=== PATIENT | female | born 1960 | race Caucasian/White ===

== ENCOUNTER 2017-05-04 18:30 | Inpatient (IN) | payer OTHER ==
[~2017-05-04] VITALS: Ht 154.9 cm; Wt 74.3 kg
[~2017-05-04 18:30] MED LIST: OSEL75 PO
[2017-05-04 18:34] VITALS: BP 179/82; PULSE 92; RESP 24; TEMP 97.4; O2SAT 100
--- NOTE | 2017-05-04 18:37 | PD ---
Physical Exam Date Seen by Provider: May 04, 2017 Time Seen by Provider: 18:34 MDM Supervised Visit with HAMMAD: No Narrative Course 57 YO left hand dom F with complaint of RIGHT wrist pain after FOOSH just before arrival. Endorses previous fracture of the same. Visibly deformed. Palpable radial pulse noted. Seen in triage. Vitals reviewed. Awaiting bed placement. Joanie Vargas May 04, 2017 18:37
[2017-05-04] MEDS ORDERED: ANXIETY MEDS (18:41)
--- NOTE | 2017-05-04 18:41 | PD ---
HPI Chief Complaint: Injury Time Seen by Provider: 18:41 Travel History International Travel<30 days: No Contact w/Intl Traveler<30days: No Traveled to known affect area: No History of Present Illness HPI 57-year-old left-handed female with history of anxiety presents to emergency department for evaluation following a trip and fall. Patient states she was walking her dogs when she fell, landing on an outstretched right upper extremity. She experienced immediate pain and deformity of the right wrist. Rates it a 10 out of 10. States she cannot flex or extend her digits without severe pain in her wrist. Did not strike her head or lose consciousness. She has no other symptoms reported this time. PFSH Past Medical History Heart Rhythm Problems: No Cancer: No Cardiac Catheterization: No Cardiovascular Problems: No High Cholesterol: Yes Diabetes: No Diminished Hearing: No Endocrine: No Gastrointestinal Disorders: No Genitourinary: No Hepatitis: No Hiatal Hernia: No Hypertension: No Immune Disorder: No Musculoskeletal: No Neurologic: No Psychiatric: No Reproductive: No Respiratory: No Myocardial Infarction: No Thyroid Disease: No ?: Not Menopausal: Yes Tubal Ligation: Yes Past Surgical History Abdominal Surgery: Yes (appendectomy) AICD: No Appendectomy: Yes Coronary Artery Bypass Graft: No Genitourinary Surgery: Yes (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 BREAST REDUCTION) Social History Alcohol Use: Yes (occas. wine) Tobacco Use: No (QUIT 2010 smoked 1 pack every4-5 days since the age of 21) Substance Use: No Allergies-Medications (Allergen,Severity, Reaction): Coded Allergies: Penicillin (Verified Allergy, Severe, SOB, SWELLING, 05/04/17) Wasp (Verified Allergy, Mild, SHOCK, 05/04/17) Tetanus Immune Globulin (Verified Allergy, Unknown, HIGH FEVER, 05/04/17) ARM LOCKS Reported Meds & Prescriptions Reported Meds & Active Scripts Active Reported [anxiety meds] Review of Systems Except as stated in HPI: all other systems reviewed are Neg Physical Exam Narrative GENERAL: Well-nourished female patient, tearful but in no acute distress SKIN: Focused skin assessment warm/dry. HEAD: Atraumatic. Normocephalic. EYES: Pupils equal and round. No scleral icterus. No injection or drainage. ENT: No nasal bleeding or discharge. Mucous membranes pink and moist. NECK: Trachea midline. No JVD. CARDIOVASCULAR: Elevated rate and rhythm. No murmur appreciated. RESPIRATORY: No accessory muscle use. Clear to auscultation. Breath sounds equal bilaterally. GASTROINTESTINAL: Abdomen soft, non-tender, nondistended. Hepatic and splenic margins not palpable. EXTREMITY: There is swelling and tenderness of the right distal forearm and wrist. There is an obvious deformity. The skin is intact. Flexion and extension of the fingers is normal. The fingers are warm and well perfused. Sensation to light touch is intact in the hand. NEUROLOGICAL: Awake and alert. No obvious cranial nerve deficits. Motor grossly within normal limits. Normal speech. PSYCHIATRIC: Appropriate mood and affect; insight and judgment normal. Data Data Last Documented VS Vital Signs Date Time Temp Pulse Resp B/P Pulse Ox O2 Delivery O2 Flow Rate FiO2 05/04/17 20:11 78 17 135/76 99 Room Air 05/04/17 18:34 97.4 Orders Wrist, Complete ([id number]) (05/04/17 ) Iv Access Insert/Monitor (05/04/17 18:45) Ondansetron Inj (Zofran Inj) (05/04/17 19:00) Sodium Chlor 0.9% 1000 Ml Inj (Ns 1000 M (05/04/17 19:00) Morphine Inj (Morphine Inj) (05/04/17 19:15) Complete Blood Count With Diff (05/04/17 19:31) Basic Metabolic Panel (Bmp) (05/04/17 19:31) Coag Profile (05/04/17 19:31) Chest, Single Ap (05/04/17 ) Electrocardiogram (05/04/17 ) Urinalysis - C+S If Indicated (05/04/17 19:31) Splint Or Brace Apply/Monitor (05/04/17 19:31) Ice / Cold Pack PRN (05/04/17 19:31) Npo After Midnight W/ Po Meds (05/05/17 Breakfast) Labs Laboratory Tests Test 05/04/17 20:10 White Blood Count 10.1 TH/MM3 Red Blood Count 3.82 MIL/MM3 Hemoglobin 12.0 GM/DL Hematocrit 34.5 % Mean Corpuscular Volume 90.3 FL Mean Corpuscular Hemoglobin 31.5 PG Mean Corpuscular Hemoglobin 34.9 % Concent Red Cell Distribution Width 12.2 % Platelet Count 274 TH/MM3 Mean Platelet Volume 8.7 FL Neutrophils (%) (Auto) 75.1 % Lymphocytes (%) (Auto) 17.6 % Monocytes (%) (Auto) 5.9 % Eosinophils (%) (Auto) 1.0 % Basophils (%) (Auto) 0.4 % Neutrophils # (Auto) 7.6 TH/MM3 Lymphocytes # (Auto) 1.8 TH/MM3 Monocytes # (Auto) 0.6 TH/MM3 Eosinophils # (Auto) 0.1 TH/MM3 Basophils # (Auto) 0.0 TH/MM3 CBC Comment DIFF FINAL Differential Comment Prothrombin Time 10.7 SEC Prothromb Time International 1.0 RATIO Ratio Activated Partial 27.4 SEC Thromboplast Time MDM Medical Decision Making Medical Screen Exam Complete: Yes Emergency Medical Condition: Yes Medical Record Reviewed: Yes Differential Diagnosis Fracture versus dislocation versus contusion versus sprain Narrative Course 57-year-old female presents to emergency room for evaluation right wrist injury. Patient is treated for pain. X-ray imaging shows Last Impressions Wrist X-Ray 05/04/17 0000 Signed Impressions: Service Date/Time: Thursday, May 04, 2017 18:53 - CONCLUSION: Comminuted and impacted/dorsally angulated intra-articular fracture of the distal right radius. Juan Carlos Marshall MD Chest X-Ray 05/04/17 0000 Signed Impressions: Service Date/Time: Thursday, May 04, 2017 19:28 - CONCLUSION: No evidence of acute cardiopulmonary disease. Juan Carlos Marshall MD I discussed the patient with Dr. Rich, orthopedic surgeon on-call. He requests the patient be nothing by mouth after midnight, admitted to medicine, and he will take her to the OR tomorrow for repair. Discussed with the patient. She is in agreement with the [facility] care. Preop labs have been ordered. EKG is normal sinus rhythm without ST elevation or depression. Chest x-ray is without acute cardiopulmonary disease. CBC and BMP are without acute concern. Laboratory Tests Test 05/04/17 20:10 White Blood Count 10.1 TH/MM3 Red Blood Count 3.82 MIL/MM3 Hemoglobin 12.0 GM/DL Hematocrit 34.5 % Mean Corpuscular Volume 90.3 FL Mean Corpuscular Hemoglobin 31.5 PG Mean Corpuscular Hemoglobin 34.9 % Concent Red Cell Distribution Width 12.2 % Platelet Count 274 TH/MM3 Mean Platelet Volume 8.7 FL Neutrophils (%) (Auto) 75.1 % Lymphocytes (%) (Auto) 17.6 % Monocytes (%) (Auto) 5.9 % Eosinophils (%) (Auto) 1.0 % Basophils (%) (Auto) 0.4 % Neutrophils # (Auto) 7.6 TH/MM3 Lymphocytes # (Auto) 1.8 TH/MM3 Monocytes # (Auto) 0.6 TH/MM3 Eosinophils # (Auto) 0.1 TH/MM3 Basophils # (Auto) 0.0 TH/MM3 CBC Comment DIFF FINAL Differential Comment Prothrombin Time 10.7 SEC Prothromb Time International 1.0 RATIO Ratio Activated Partial 27.4 SEC Thromboplast Time A call has been placed at [facility] for admission. Diagnosis Primary Impression: Right wrist fracture Qualified Code: S62.101A - Right wrist fracture, closed, initial encounter Admitting Information Admitting Physician Requests: Admit Condition: Stable Madyson Benavides May 04, 2017 18:41
[2017-05-04] MEDS ORDERED: SODIUM CHLOR 0.9% 1000 ML INJ 1,000 ML IV ONE (19:00)
[2017-05-04] MEDS ORDERED: ONDANSETRON HCL 4 MG/2 ML VIAL IV PUSH ONE (19:00)
--- NOTE | 2017-05-04 19:11 | RADRPT ---
EXAM DATE/TIME: 05/04/2017 18:53 [facility] COMPARISON: No previous studies available for comparison. INDICATIONS : Fall. Mid forearm pain with swelling. MEDICAL HISTORY : None. SURGICAL HISTORY : Hysterectomy. Appendectomy. Endometrial Ablation, R hand Carpal Tunnel and trigger finger ENCOUNTER: Initial ACUITY: 1 day PAIN SCORE: 10/10 LOCATION: Right wrist FINDINGS: There is a severely comminuted intra-articular fracture of the distal right radius. The fracture is i mpacted and dorsally angulated. Comminuted fracture also seen of the ulnar styloid, minimally displaced. CONCLUSION: Comminuted and impacted/dorsally angulated intra-articular fracture of the distal right radius. Juan Carlos Marshall MD on May 04, 2017 at 19:07 Board Certified Radiologist. This report was verified electronically.
[2017-05-04] MEDS ORDERED: MORPHINE SULFATE 4 MG/ML INJ IV PUSH ONE (19:15)
[2017-05-04 19:30] VITALS: BP 142/67; PULSE 79; RESP 17; O2SAT 98
--- NOTE | 2017-05-04 19:58 | RADRPT ---
EXAM DATE/TIME: 05/04/2017 19:28 [facility] COMPARISON: No previous studies available for comparison. INDICATIONS : Evaluate for pneumonia, pneumothorax, and communicable disease. Pre-op right wrist fracture. MEDICAL HISTORY : None. SURGICAL HISTORY : Hysterectomy. Appendectomy. Endometrial Ablation, R hand Carpal Tunnel. Trigger finger ENCOUNTER: Subsequent ACUITY: 1 day PAIN SCORE: 0/10 LOCATION: Bilateral chest FINDINGS: A single view of the chest demonstrates the lungs to be symmetrically aerated without evidence of mas s, infiltrate or effusion. The cardiomediastinal contours are unremarkable. Osseous structures are intact. CONCLUSION: No evidence of acute cardiopulmonary disease. Juan Carlos Marshall MD on May 04, 2017 at 19:55 Board Certified Radiologist. This report was verified electronically.
[2017-05-04 20:11] VITALS: BP 135/76; PULSE 78; RESP 17; O2SAT 99
[2017-05-04 20:42] LABS: AUTOMATED NEUTROPHIL # 7.6 TH/MM3 (1.8-7.7); BASOPHIL % 0.4 % (0.0-2.0); EOSINOPHIL # 0.1 TH/MM3 (0-0.4); HEMATOCRIT 34.5 % (35.0-46.0); HEMO FLAGS DIFF FINAL; LYMPH % 17.6 % (9.0-44.0); LYMPHOCYTE # 1.8 TH/MM3 (1.0-4.8); MEAN CELL VOLUME 90.3 FL (80.0-100.0); MEAN CORPUSCULAR HEMOGLOBIN 31.5 PG (27.0-34.0); MEAN CORPUSCULAR HGB CONC 34.9 % (32.0-36.0); MONO % 5.9 % (0.0-8.0); NEUT % 75.1 % (16.0-70.0); PLATELET COUNT 274 TH/MM3 (150-450); RED BLOOD COUNT 3.82 MIL/MM3 (4.00-5.30); RED CELL DISTRIBUTION WIDTH 12.2 % (11.6-17.2); WHITE BLOOD COUNT 10.1 TH/MM3 (4.0-11.0)
[2017-05-04 20:58] LABS: APTT (PATIENT) 27.4 SEC (24.3-30.1); PROTHROMBIN TIME - PATIENT 10.7 SEC (9.8-11.6)
[2017-05-04 21:03] LABS: BICARBONATE 25.6 MEQ/L (21.0-32.0); POTASSIUM 3.5 MEQ/L (3.5-5.1)
[2017-05-04 21:25] LABS: BACTERIA, URINE RARE /hpf; BLOOD, URINE NEG (NEG); COMMENT (UR) CULTURE INDICATED; CULTURE IF INDICATED CULTURE INDICATED; GLUCOSE,URINE NEG (NEG); KETONE, URINE NEG (NEG); MUCUS URINE FEW /lpf (OCC); NITRITE,URINE NEG (NEG); URINE COLOR COLORLESS (YELLW/STRAW)
--- NOTE | 2017-05-04 21:27 | HHI.HP ---
[facility] Primary [facility] Physician Nabor Mendoza MD Admission Diagnosis R wrist fracture Diagnoses: (1) Fall Diagnosis: Principal (2) Right wrist fracture Diagnosis: Principal (3) Hypocalcemia Diagnosis: Principal (4) Dehydration Diagnosis: Principal (5) HTN (hypertension) Diagnosis: Principal (6) UTI (urinary tract infection) Diagnosis: Principal Travel History International Travel<30 Days: No Contact w/Intl Traveler <30 Da: No Traveled to Known Affected Are: No History of Present Illness This is a 57-year-old female with PMH of Anxiety who presented to the ER with right wrist deformity following a fall. States she went to take her 2 large dogs outside for a walk, when one of them ran off and pulled her with him, landed on outstretched hand. States she noticed obvious deformity to right wrist and severe pain. No LOC or head trauma. On arrival, BP 135/76, HR 78, O2 sat 99% on RA, Afebrile. CBC essentially unremarkable. Chemistry unremarkable except for GFR 79. Calcium 8.4. INR 1.0. U/a w/ UTI. CXR with no acute findings. Wrist X-ray with comminuted and impacted/dorsally angulated intra-articular fracture of the distal right radius. Dr. Huynh consulted by ER physician, plan is for surgical intervention in am. Review of Systems Except as stated in HPI: all other systems reviewed are Neg ROS: 14 point review of systems otherwise negative. Past Family Social History Past Medical History PMH: Anxiety Past Surgical History PAST SURGICAL HISTORY: Appendectomy, Benign Breast Tumor Removal, Breast Reduction, Hysterectomy Allergies: Coded Allergies: Penicillin (Verified Allergy, Severe, SOB, SWELLING, 05/04/17) Wasp (Verified Allergy, Mild, SHOCK, 05/04/17) Tetanus Immune Globulin (Verified Allergy, Unknown, HIGH FEVER, 05/04/17) ARM LOCKS Family History PAST FAMILY HISTORY: Reviewed. No h/o DM or CAD Social History PAST SOCIAL HISTORY: Occasional alcohol. Negative for tobacco or drugs. Physical Exam Vital Signs Vital Signs Date Time Temp Pulse Resp B/P Pulse Ox O2 Delivery O2 Flow Rate FiO2 05/04/17 20:11 78 17 135/76 99 Room Air 05/04/17 19:45 17 05/04/17 19:30 79 17 142/67 98 Room Air 05/04/17 18:34 97.4 92 24 179/82 100 Room Air Physical Exam PE: GENERAL: Pleasant middle-aged white female in no acute distress. HEENT: PERRLA, EOMI. No scleral icterus or conjunctival pallor. No lid lag or facial droop. CARDIOVASCULAR: Regular rate and rhythm. No obvious murmurs to auscultation. No chest tenderness to palpation. RESPIRATORY: No obvious rhonchi or wheezing. Clear to auscultation. Breath sounds equal bilaterally. GASTROINTESTINAL: Abdomen soft, non-tender, nondistended. BS normal. MUSCULOSKELETAL: Extremities without clubbing, cyanosis, or edema. No obvious deformities. RUE in splint, +pain w/ movement. NEUROLOGICAL: Awake, alert and oriented x4. No focal neurologic deficits. Moving both upper and lower extremities spontaneously. Laboratory Laboratory Tests Test 05/04/17 05/04/17 20:10 20:50 White Blood Count 10.1 Red Blood Count 3.82 Hemoglobin 12.0 Hematocrit 34.5 Mean Corpuscular Volume 90.3 Mean Corpuscular Hemoglobin 31.5 Mean Corpuscular Hemoglobin 34.9 Concent Red Cell Distribution Width 12.2 Platelet Count 274 Mean Platelet Volume 8.7 Neutrophils (%) (Auto) 75.1 Lymphocytes (%) (Auto) 17.6 Monocytes (%) (Auto) 5.9 Eosinophils (%) (Auto) 1.0 Basophils (%) (Auto) 0.4 Neutrophils # (Auto) 7.6 Lymphocytes # (Auto) 1.8 Monocytes # (Auto) 0.6 Eosinophils # (Auto) 0.1 Basophils # (Auto) 0.0 CBC Comment DIFF FINAL Differential Comment Prothrombin Time 10.7 Prothromb Time International 1.0 Ratio Activated Partial 27.4 Thromboplast Time Sodium Level 141 Potassium Level 3.5 Chloride Level 107 Carbon Dioxide Level 25.6 Anion Gap 8 Blood Urea Nitrogen 18 Creatinine 0.75 Estimat Glomerular Filtration 79 Rate Random Glucose 118 Calcium Level 8.4 Urine Color COLORLESS Urine Turbidity CLEAR Urine pH 6.0 Urine Specific [place] 1.005 Urine Protein NEG Urine Glucose (UA) NEG Urine Ketones NEG Urine Occult Blood NEG Urine Nitrite NEG Urine Bilirubin NEG Urine Urobilinogen LESS THAN 2.0 Urine Leukocyte Esterase LARGE Urine RBC LESS THAN 1 Urine WBC 24 Urine Bacteria RARE Urine Mucus FEW Microscopic Urinalysis Comment CULTURE INDICATED Date/Time Procedure Status Source Growth 05/04/17 20:50 Urine Culture Received Urine Clean Catch Pending Result Diagram: 05/04/17200905/04/172009 Assessment and Plan Problem List: (1) Fall ICD Code: W19.XXXA Status: Acute (2) Right wrist fracture ICD Code: S62.101A Status: Acute (3) Dehydration ICD Code: E86.0 Status: Acute (4) Hypocalcemia ICD Code: E83.51 Status: Acute (5) UTI (urinary tract infection) ICD Code: N39.0 Status: Acute (6) HTN (hypertension) ICD Code: I10 Status: Acute Assessment and Plan A/P: 1. Fall: s/p mechanical trip and fall while walking dogs, no LOC or head trauma reported. No other injuries besides right wrist fx. 2. Right Wrist Fx: secondary to above. X-ray w/ comminuted and impacted intra -articular fracture of distal right radius, images reviewed by me. Dr. Huynh consulted by ER physician, plan is for surgical intervention in am. NPO, IVF, analgesics/antiemetics as needed. 3. Dehydration: GFR 79, BUN/Creatinine normal. U/a w/ UTI, IVF for hydration , repeat labs in am. 4. Hypocalcemia: Ca 8.4, will give IVF and recheck in am. 5. UTI: U/a w/ significant UTI, start IV Cipro, IVF for hydration. 6. HTN: BP 170's on arrival, likely compounded by pain complaints. No h/o HTN , BP currently 130's systolic, will monitor. 7. DVT Prophylaxis: SCD/Teds. 8. Social work for d/c planning as needed. 9. Case discussed w/ ER physician at length. Physician Certification 2 Midnight Certification Type: Admission for Inpatient Services Order for Inpatient Services The services are ordered in accordance with Medicare regulations or non- Medicare payer requirements, as applicable. In the case of services not specified as inpatient-only, they are appropriately provided as inpatient services in accordance with the 2-midnight benchmark. Estimated LOS (days): 2 days is the estimated time the patient will need to remain in the hospital, assuming treatment plan goals are met and no additional complications. Post-Hospital Plan: Not yet determined Problem Qualifiers (1) Right wrist fracture: Qualified Code: S62.101A - Right wrist fracture, closed, initial encounter Deja Kumar MD May 04, 2017 21:27
[2017-05-04] MEDS ORDERED: SODIUM CHLORIDE 0.9% FLUSH 10 ML FLUSH IV FLUSH PRN (21:30)
[2017-05-04] MEDS ORDERED: ACETAMINOPHEN 325 MG TAB PO PRN (21:30)
[2017-05-04] MEDS ORDERED: LACTULOSE SYRUP 20 GM/30 ML CUP PO PRN (21:30)
[2017-05-04] MEDS ORDERED: SENNOSIDES 8.6 MG TAB PO PRN (21:30)
[2017-05-04] MEDS ORDERED: ONDANSETRON HCL 4 MG/2 ML VIAL IVP PRN (21:30)
[2017-05-04] MEDS ORDERED: BISACODYL 10 MG SUPP RECTAL PRN (21:30)
[2017-05-04] MEDS ORDERED: MAGNESIUM HYDROXIDE SUSP 30 ML CUP PO PRN (21:30)
[2017-05-04 21:37] VITALS: BP 131/64
[2017-05-04] MEDS: MORPHINE SULFATE 4 MG/ML INJ IV PRN (21:46)
[2017-05-04] MEDS: SODIUM CHLOR 0.9% 1000 ML INJ 1,000 ML IV SCH (21:46)
[2017-05-04] MEDS ORDERED: CHLORHEXIDINE GLUCONATE 2 % 1 PACK (2 CLOTHS) TOPICAL PRN (22:45)
[2017-05-04] MEDS ORDERED: LACTATED RINGER'S 1000 ML IV PRN (22:45)
[2017-05-04] MEDS ORDERED: POVIDONE IODINE 5% (ANTISEPSIS KIT) 4 APPLICATIONS EACH NARE PRN (22:45)
[2017-05-04] MEDS ORDERED: INSULIN HUMAN REGULAR 1,000 UNITS/10 ML VIAL SQ PRN (22:45)
[2017-05-04] MEDS: ACETAMINOPHEN/HYDROcodone 325 MG/5 MG TAB PO PRN (22:48)
[2017-05-05] VITALS: BP 137/66; PULSE 71; RESP 18; TEMP 96.3; O2SAT 98
[2017-05-05] MEDS ORDERED: CIPROFLOXACIN 400 MG PREMIX 200 ML IV SCH (01:00)
[2017-05-05] MEDS: MORPHINE SULFATE 4 MG/ML INJ IV PRN ×2 (01:09→06:16)
[2017-05-05] MEDS ORDERED: PADIMATE (CHAPSTICK) 4.5 GM TUBE TOPICAL PRN (01:30)
[2017-05-05] MEDS: ACETAMINOPHEN/HYDROcodone 325 MG/5 MG TAB PO PRN ×2 (03:21→07:54)
[2017-05-05 04:00] VITALS: BP 126/61; PULSE 70; RESP 16; TEMP 98; O2SAT 95
[2017-05-05] MEDS: SODIUM CHLOR 0.9% 1000 ML INJ 1,000 ML IV SCH ×2 (06:17→17:25)
[2017-05-05 07:04] LABS: AUTOMATED NEUTROPHIL # 5.8 TH/MM3 (1.8-7.7); BASOPHIL % 0.4 % (0.0-2.0); EOSINOPHIL # 0.1 TH/MM3 (0-0.4); EOSINOPHIL % 1.3 % (0.0-4.0); HEMATOCRIT 36.8 % (35.0-46.0); HEMO FLAGS DIFF FINAL; LYMPHOCYTE # 2.2 TH/MM3 (1.0-4.8); MEAN CELL VOLUME 91.5 FL (80.0-100.0); MEAN CORPUSCULAR HEMOGLOBIN 30.3 PG (27.0-34.0); MEAN CORPUSCULAR HGB CONC 33.2 % (32.0-36.0); MONO % 7.7 % (0.0-8.0); NEUT % 65.6 % (16.0-70.0); PLATELET COUNT 251 TH/MM3 (150-450); RED BLOOD COUNT 4.02 MIL/MM3 (4.00-5.30); RED CELL DISTRIBUTION WIDTH 12.5 % (11.6-17.2); WHITE BLOOD COUNT 8.8 TH/MM3 (4.0-11.0)
[2017-05-05 07:33] LABS: ALT (GPT) 26 U/L (10-53); ANION GAP 7 MEQ/L (5-15); AST (GOT) 15 U/L (15-37); BICARBONATE 25.3 MEQ/L (21.0-32.0); BLOOD UREA NITROGEN 11 MG/DL (7-18); CHLORIDE 110 MEQ/L (98-107); GLOMERULAR FILTRATION RATE 86 ML/MIN (>89); SODIUM (NA) 142 MEQ/L (136-145)
[2017-05-05 07:35] LABS: ALKALINE PHOSPHATASE 93 U/L (45-117); TOTAL BILIRUBIN ADULT 0.3 MG/DL (0.2-1.0)
[2017-05-05 08:00] VITALS: BP 121/72; PULSE 69; RESP 18; TEMP 97.5; O2SAT 94
[2017-05-05] MEDS ORDERED: SODIUM CHLORIDE 0.9% FLUSH 10 ML FLUSH IV FLUSH SCH ×2 (09:00→21:00)
[2017-05-05] MEDS ORDERED: DOCUSATE SODIUM 50 MG/SENNA 8.6 MG TAB PO SCH (09:00)
[2017-05-05] MEDS ORDERED: LACTTAB8 PO (09:38)
[2017-05-05] MEDS ORDERED: PERC5TAB12 PO ×2 (09:38→10:20)
[2017-05-05] MEDS ORDERED: NORC5TAB PO (09:38)
[2017-05-05] MEDS ORDERED: CIPR-9 PO (09:38)
--- NOTE | 2017-05-05 09:47 | HHI.PR ---
Subjective Remarks Plan for surgical repair of right wrist fracture with deformity. Other findings at time of admission were UTI and hypocalcemia. Hypocalcemia is likely a stress reaction relation as it is borderline low. Pain controlled and seen. No other new complaints. If cleared after surgery she may be a candidate for discharge is afternoon. Objective Vital Signs Date Time Temp Pulse Resp B/P Pulse Ox O2 Delivery O2 Flow Rate FiO2 05/05/17 04:00 98.0 70 16 126/61 95 05/05/17 01:14 18 05/05/17 00:00 96.3 71 18 137/66 98 05/04/17 23:48 18 05/04/17 21:37 83 17 131/64 99 05/04/17 20:11 78 17 135/76 99 Room Air 05/04/17 19:45 17 05/04/17 19:30 79 17 142/67 98 Room Air 05/04/17 18:34 97.4 92 24 179/82 100 Room Air I/O 05/04/17 05/04/17 05/04/17 05/05/17 05/05/17 05/05/17 07:00 15:00 23:00 07:00 15:00 23:00 Intake Total 978 ml Balance 978 ml Intake Oral 0 ml IV Total 978 ml # Voids 2 # Bowel Movements 0 Result Diagram: 05/05/17 0621 05/05/17 0621 Imaging Last Impressions Wrist X-Ray 05/04/17 0000 Signed Impressions: Service Date/Time: Thursday, May 04, 2017 18:53 - CONCLUSION: Comminuted and impacted/dorsally angulated intra-articular fracture of the distal right radius. Juan Carlos Marshall MD Chest X-Ray 05/04/17 0000 Signed Impressions: Service Date/Time: Thursday, May 04, 2017 19:28 - CONCLUSION: No evidence of acute cardiopulmonary disease. Juan Carlos Marshall MD Procedures Right wrist fracture repair (pending) Objective Remarks GENERAL: NAD, A&Ox3 HEAD: Normocephalic. NECK: Supple, trachea midline. No lymphadenopathy. EYES: No scleral icterus. No injection or drainage. CARDIOVASCULAR: Regular rate and rhythm without murmurs, gallops, or rubs. RESPIRATORY: Breath sounds equal bilaterally. No accessory muscle use. GASTROINTESTINAL: Abdomen soft, non-tender, nondistended. MUSCULOSKELETAL: No cyanosis, or edema. Right forearm is bandaged. SKIN: Warm and dry. NEURO: No focal neurological deficitis. Medications and IVs Administered Medications Medications (Trade) Dose Ordered Sig/Jose E Route PRN Reason Start Time Stop Time Status Last Admin Dose Admin Sodium Chloride (NS 1000 ml Inj) 1,000 ml @ 100 mls/hr Q10H IV 05/04/17 21:25 05/05/17 06:17 Sodium Chloride (NS Flush) 2 ml BID IV FLUSH 05/05/17 09:00 05/05/17 07:54 Acetaminophen/ Hydrocodone Bitart ([place]ouke 5-325 Mg) 1 tab Q4H PRN PO PAIN SCALE 3 TO 5 05/04/17 21:30 05/05/17 07:54 Morphine Sulfate (Morphine Inj) 2 mg Q3H PRN IV Pain 6-10 05/04/17 21:30 05/05/17 06:16 Senna/Docusate Sodium 1 tab 1 tab BID PO 05/05/17 09:00 05/05/17 07:53 Ciprofloxacin/ Dextrose (Cipro 400 Mg Premix) 200 ml @ 200 mls/hr Q12H IV 05/05/17 01:00 05/05/17 01:09 A/P Problem List: (1) Right wrist fracture ICD Code: S62.101A (2) UTI (urinary tract infection) ICD Code: N39.0 (3) Hypocalcemia ICD Code: E83.51 Assessment and Plan Assessment and plan 57-year-old female admitted for surgical repair of her right wrist fracture Right wrist fracture Surgical repair today Plan for Percocet for 3 days and then Fouke for pain control at home. Potential discharge this afternoon after surgical repair Follow-up with orthopedic surgeons as an outpatient. Urinary tract infection Continue by mouth Cipro at discharge. Probiotics while on antibiotics Hypocalcemia No need to supplement at this time. Degree of hypocalcemia is borderline low Etiology is likely related to stress reaction Follow as an outpatient DVT prophylaxis SCDs Discharge planning Assuming no excessive bleeding or anesthesia reactions and a healthy recovery post surgical repair, patient is medically stable for discharge once orthopedic surgery is completed and surgeons clear patient Problem Qualifiers (1) Right wrist fracture: Qualified Code: S62.101A - Right wrist fracture, closed, initial encounter Young Palacios MD May 05, 2017 09:46
[2017-05-05] MEDS ORDERED: MIDAZOLAM HCL 2 MG/2 ML VIAL ONE (10:26)
[2017-05-05] MEDS ORDERED: ACETAMINOPHEN 1000 MG/100 ML VIAL IV ONE (10:26)
[2017-05-05] MEDS ORDERED: MORPHINE SULFATE 8 MG/ML INJ IV PUSH PRN (10:30)
[2017-05-05] MEDS ORDERED: ONDANSETRON HCL 4 MG/2 ML VIAL IV PRN (10:30)
[2017-05-05] MEDS ORDERED: KETOROLAC TROMETHAMINE 30 MG/ML (IVP) VIAL IVP ONE (10:30)
[2017-05-05] MEDS ORDERED: oxyCODONE/ACETAMINOPHEN 5 MG/325 MG TAB PO PRN ×2 (10:30)
[2017-05-05] MEDS ORDERED: SODIUM CHLORIDE 0.9% FLUSH 10 ML FLUSH IV FLUSH PRN (10:30)
[2017-05-05] MEDS ORDERED: ZOLPIDEM TARTRATE 5 MG TAB PO PRN (10:30)
--- NOTE | 2017-05-05 10:32 | PD.CONS ---
cc: Devonte Meza Jr., MD HPI Service Orthopedic Surgeons Consult Requested By Primary Care Physician Nabor Mendoza MD Admission Diagnosis R wrist fracture Diagnoses: (1) Fall (2) Right wrist fracture (3) Dehydration (4) Hypocalcemia (5) UTI (urinary tract infection) (6) HTN (hypertension) Diagnosis: Principal Chief Complaint: right wrist fx History of Present Illness 57-year-old female with PMH of Anxiety who presented to the ER with right wrist deformity following a fall. States she went to take her 2 large dogs outside for a walk, when one of them ran off and pulled her with him, landed on outstretched hand. She noticed deformity and complains of right wrist pain. X-ray taken the emergency department reveal displaced intra-articular right distal radius fracture Denies any head injuries. Denies loss of consciousness. Currently patient's pain is sharp, 8 out of 10, exacerbated by any range of motion, relieved at rest and with IV pain medicine, pain is sharp nonradiating, not associated with any paresthesia and numbness to the extremity. ROS - General Review of Systems Except as stated in HPI: all other systems reviewed are Neg ROS: 14 point review of systems otherwise negative. PFSH Past Family Social History Past Medical History PMH: Anxiety Past Surgical History PAST SURGICAL HISTORY: Appendectomy, Benign Breast Tumor Removal, Breast Reduction, Hysterectomy Allergies: Coded Allergies: Penicillin (Verified Allergy, Severe, SOB, SWELLING, 05/04/17) Wasp (Verified Allergy, Mild, SHOCK, 05/04/17) Tetanus Immune Globulin (Verified Allergy, Unknown, HIGH FEVER, 05/04/17) ARM LOCKS Family History PAST FAMILY HISTORY: Reviewed. No h/o DM or CAD Social History PAST SOCIAL HISTORY: Occasional alcohol. Negative for tobacco or drugs. Review of Systems Constitutional: DENIES: Diaphoretic episodes, Fatigue, Fever, Weight gain, Weight loss, Chills, Dizziness, Change in appetite, Night Sweats Endocrine: DENIES: Abnorml menstrual pattern, Heat/cold intolerance, Polydipsia , Polyuria, Polyphagia Eyes: DENIES: Blurred vision, Diplopia, Eye inflammation, Eye pain, Vision loss , Photosensitivity, Double Vision Ears, nose, mouth, throat: DENIES: Tinnitus, Hearing loss, Vertigo, Nasal discharge, Oral lesions, Throat pain, Hoarseness, Ear Pain, Running Nose, Epistaxis, Sinus Pain, Toothache, Odynophagia Respiratory: DENIES: Apneas, Cough, Snoring, Wheezing, Hemoptysis, Sputum production, Shortness of breath Cardiovascular: DENIES: Chest pain, Palpitations, Syncope, Dyspnea on Exertion , PND, Lower Extremity Edema, Orthopnea, Claudication Past Family Social History Past Medical History PMH: Anxiety Past Surgical History PAST SURGICAL HISTORY: Appendectomy, Benign Breast Tumor Removal, Breast Reduction, Hysterectomy Allergies: Coded Allergies: Penicillin (Verified Allergy, Severe, SOB, SWELLING, 05/04/17) Wasp (Verified Allergy, Mild, SHOCK, 05/04/17) Tetanus Immune Globulin (Verified Allergy, Unknown, HIGH FEVER, 05/04/17) ARM LOCKS Active Ordered Medications Current Medications Medications (Trade) Dose Ordered Sig/Jose E Route Start Time Stop Time Status Last Admin (NS 1000 ml Inj) 1,000 ml @ 100 mls/hr Q10H IV 05/04/17 21:25 05/05/17 06:17 (NS Flush) 2 ml UNSCH PRN IV FLUSH 05/04/17 21:30 (NS Flush) 2 ml BID IV FLUSH 05/05/17 09:00 05/05/17 07:54 (Zofran Inj) 4 mg Q6H PRN IVP 05/04/17 21:30 (Tylenol) 650 mg Q6H PRN PO 05/04/17 21:30 (Ludlow 5-325 Mg) 1 tab Q4H PRN PO 05/04/17 21:30 05/05/17 07:54 (Morphine Inj) 2 mg Q3H PRN IV 05/04/17 21:30 05/05/17 06:16 (Monica-Colace) 1 tab BID PO 05/05/17 09:00 05/05/17 07:53 (Milk Of Magnesia Liq) 30 ml Q12H PRN PO 05/04/17 21:30 (Senokot) 17.2 mg Q12H PRN PO 05/04/17 21:30 (Dulcolax Supp) 10 mg DAILY PRN RECTAL 05/04/17 21:30 Lactulose 30 ml 30 ml DAILY PRN PO 05/04/17 21:30 Lactated Ringer's 1,000 ml @ 30 mls/hr Q24H PRN IV 05/04/17 22:45 05/07/17 22:44 (Cipro 400 Mg Premix) 200 ml @ 200 mls/hr Q12H IV 05/05/17 01:00 05/05/17 01:09 (Chapstick) 1 applic UNSCH PRN TOPICAL 05/05/17 01:30 (NS Flush) 2 ml UNSCH PRN IV FLUSH 05/05/17 10:30 UNV Sodium Chloride 2 ml 2 ml BID IV FLUSH 05/05/17 21:00 UNV (Vancomycin Inj/ NS 250 ml Inj) 250 ml @ 250 mls/hr Q12H IV 05/05/17 10:30 UNV (Morphine Inj) 5 mg Q3H PRN IV PUSH 05/05/17 10:30 UNV (Percocet 5-325 Mg) 1 tab Q4H PRN PO 05/05/17 10:30 UNV (Percocet 5-325 Mg) 2 tab Q6H PRN PO 05/05/17 10:30 UNV (Toradol Inj) 15 mg ONCE ONCE IVP 05/05/17 10:30 05/05/17 10:31 UNV (Zofran Inj) 4 mg Q6H PRN IV 05/05/17 10:30 UNV (Colace) 100 mg BID PO 05/05/17 21:00 UNV (Ambien) 5 mg HS PRN PO 05/05/17 10:30 UNV Reported Meds & Active Scripts Active Percocet (Oxycodone-Acetaminophen) 5-325 mg Tab 1 Tab PO Q4H PRN Lactobacillus Acidophilus 1 Tab Tab 1 Tab PO TIDAC Cipro (Ciprofloxacin HCl) 500 Mg Tab 500 Mg PO BID Percocet (Oxycodone-Acetaminophen) 5-325 mg Tab 1 Tab PO Q4H PRN Ludlow (Hydrocodone-Acetaminophen) 5-325 mg Tab 1 Tab PO Q4H PRN Reported [anxiety meds] Family History PAST FAMILY HISTORY: Reviewed. No h/o DM or CAD Social History PAST SOCIAL HISTORY: Occasional alcohol. Negative for tobacco or drugs. Physical Exam Vital Signs Vital Signs Date Time Temp Pulse Resp B/P Pulse Ox O2 Delivery O2 Flow Rate FiO2 05/05/17 08:00 97.5 69 18 121/72 94 05/05/17 04:00 98.0 70 16 126/61 95 05/05/17 01:14 18 05/05/17 00:00 96.3 71 18 137/66 98 05/04/17 23:48 18 05/04/17 21:37 83 17 131/64 99 05/04/17 20:11 78 17 135/76 99 Room Air 05/04/17 19:45 17 05/04/17 19:30 79 17 142/67 98 Room Air 05/04/17 18:34 97.4 92 24 179/82 100 Room Air Physical Exam Alert awake and oriented x 3. No acute distress. Head: NC/AT Neck: No pain with any range of motion and neck. Trachea is midline. No tenderness to palpation along posterior cervical elements. Pulmonary: Normal respiratory effort. Right upper extremity: Swelling around the hand and wrist. Tender to palpation of distal radius. Splint in place. Grossly neurovascularly intact with patient able to wiggle fingers. Fingers are warm well perfused. RIGHT lower extremity: No deformity, grossly Neurovascularly intact, +EHL/FHL. + PT/DP pulses. Supple compartments. Negative Homans sign. LEFT lower extremity: No deformity, grossly Neurovascularly intact, +EHL/FHL. + PT/DP pulses. Supple compartments. Negative Homans sign. Laboratory Laboratory Tests Test 05/04/17 05/04/17 05/05/17 20:10 20:50 06:21 White Blood Count 10.1 8.8 Red Blood Count 3.82 4.02 Hemoglobin 12.0 12.2 Hematocrit 34.5 36.8 Mean Corpuscular Volume 90.3 91.5 Mean Corpuscular Hemoglobin 31.5 30.3 Mean Corpuscular Hemoglobin 34.9 33.2 Concent Red Cell Distribution Width 12.2 12.5 Platelet Count 274 251 Mean Platelet Volume 8.7 8.7 Neutrophils (%) (Auto) 75.1 65.6 Lymphocytes (%) (Auto) 17.6 25.0 Monocytes (%) (Auto) 5.9 7.7 Eosinophils (%) (Auto) 1.0 1.3 Basophils (%) (Auto) 0.4 0.4 Neutrophils # (Auto) 7.6 5.8 Lymphocytes # (Auto) 1.8 2.2 Monocytes # (Auto) 0.6 0.7 Eosinophils # (Auto) 0.1 0.1 Basophils # (Auto) 0.0 0.0 CBC Comment DIFF FINAL DIFF FINAL Differential Comment Prothrombin Time 10.7 Prothromb Time International 1.0 Ratio Activated Partial 27.4 Thromboplast Time Sodium Level 141 142 Potassium Level 3.5 4.0 Chloride Level 107 110 Carbon Dioxide Level 25.6 25.3 Anion Gap 8 7 Blood Urea Nitrogen 18 11 Creatinine 0.75 0.70 Estimat Glomerular Filtration 79 86 Rate Random Glucose 118 102 Calcium Level 8.4 8.3 Urine Color COLORLESS Urine Turbidity CLEAR Urine pH 6.0 Urine Specific [place] 1.005 Urine Protein NEG Urine Glucose (UA) NEG Urine Ketones NEG Urine Occult Blood NEG Urine Nitrite NEG Urine Bilirubin NEG Urine Urobilinogen LESS THAN 2.0 Urine Leukocyte Esterase LARGE Urine RBC LESS THAN 1 Urine WBC 24 Urine Bacteria RARE Urine Mucus FEW Microscopic Urinalysis Comment CULTURE INDICATED Total Bilirubin 0.3 Aspartate Amino Transf 15 (AST/SGOT) Alanine Aminotransferase 26 (ALT/SGPT) Alkaline Phosphatase 93 Total Protein 6.2 Albumin 3.3 Date/Time Procedure Status Source Growth 05/04/17 20:50 Urine Culture Received Urine Clean Catch Pending Result Diagram: 05/05/1721 05/05/17 0621 Imaging Last 72 hours Impressions Wrist X-Ray 05/04/17 0000 Signed Impressions: Service Date/Time: Thursday, May 04, 2017 18:53 - CONCLUSION: Comminuted and impacted/dorsally angulated intra-articular fracture of the distal right radius. Juan Carlos Marshall MD Chest X-Ray 05/04/17 0000 Signed Impressions: Service Date/Time: Thursday, May 04, 2017 19:28 - CONCLUSION: No evidence of acute cardiopulmonary disease. Juan Carlos Marshall MD Assessment & Plan Assessment and Plan 57-year-old female status post fall while walking outside with her dogs in the rain sustaining a closed right distal radius intra-articular fracture. Her fractures in stable and requires open reduction internal fixation. She is grossly neurovascularly intact. I discussed my treatment plans with the patient , as well as risks, benefits and alternatives of surgical Intervention versus nonoperative treatment. In this case, the risks of operative intervention involves bleeding, infection, risks of damage to neurovascular structures, the risk of needing further surgery, posttraumatic arthritis and the risks involved with complication from anesthesia. We will proceed with the above procedure. The patient accepts these risks; understands and agrees with my recommendations. I also discussed my proposed postoperative care and follow-up plan. All questions were answered. Plan for OR []. Nothing by mouth []. Patient consented. NWHemanth SUERO postop Thanks for the consult, thanks for allowing me to participate in this patient's medical care. Devonte Meza Jr., MD May 05, 2017 10:32
[2017-05-05] MEDS ORDERED: VANCOMYCIN HCL 1000 MG VIAL ONE (10:44)
[2017-05-05] MEDS ORDERED: GENTAMICIN SULFATE 80 MG/2 ML VIAL ONE (10:44)
[2017-05-05] MEDS ORDERED: CLINDAMYCIN PHOS 600 MG/4 ML VIAL ONE (10:44)
[2017-05-05] MEDS ORDERED: SODIUM CHLOR 0.9% 250 ML INJ 250 ML ONE (10:45)
[2017-05-05] MEDS ORDERED: GELFOAM SIZE 100 ONE (11:50)
[2017-05-05] MEDS ORDERED: THROMBIN (TOPICAL) 5,000 UNIT VIAL ONE (11:50)
[2017-05-05] MEDS ORDERED: PHENYLEPH/NS 1000 MCG/10 ML SYR IV ONE (12:00)
[2017-05-05] MEDS ORDERED: PROPOFOL 200 MG/20 ML AMP IV ONE (12:00)
[2017-05-05] MEDS ORDERED: ONDANSETRON HCL 4 MG/2 ML VIAL IV PUSH ONE (12:00)
[2017-05-05] MEDS ORDERED: ePHEDrine/NS 25 MG/5 ML SYR IV ONE (12:00)
--- NOTE | 2017-05-05 12:18 | EKG ---
Date Performed: 05/04/2017 Time Performed: 20:18:37 PTAGE: 57 years EKG: Sinus rhythm NORMAL ECG PREVIOUS TRACING : 02/07/2015 07.39 Compared to prior tracing no significant change DOCTOR: Olegario Young Interpretating Date/Time 05/05/2017 12:14:21
--- NOTE | 2017-05-05 12:26 | RADRPT ---
EXAM DATE/TIME: 05/05/2017 11:41 [facility] COMPARISON: WRIST RIGHT COMPLETE ([id number]), May 04, 2017, 18:53. INDICATIONS : Right wrist ORIF. MEDICAL HISTORY : None. SURGICAL HISTORY : None. ENCOUNTER: Initial ACUITY: 1 day PAIN SCORE: Non-responsive. LOCATION: Right wrist. FINDINGS: Two view examination of the right wrist demonstrates plate and screw fixation of the distal radius. N o complications identified. Normal alignment. Ulnar styloid fracture present. CONCLUSION: 1. Fixation distal right radius. Basil Stevens MD on May 05, 2017 at 12:23 Board Certified Radiologist. This report was verified electronically.
[2017-05-05] MEDS ORDERED: DO NOT ADM ANY ANTICOAGULANT DRUGS PRN (12:49)
[2017-05-05] MEDS ORDERED: *morphine SULFATE 8 MG/ML PERIprocedure ONLY ONE ×2 (13:02→13:36)
[2017-05-05 14:10] VITALS: BP 134/64; PULSE 88; RESP 18; TEMP 97; O2SAT 94
--- NOTE | 2017-05-05 18:58 | PD.OP ---
cc: Devonte Meza Jr., MD Operative Report Date of Surgery: May 05, 2017 Preoperative Diagnosis: right intra-articular distal radius fracture, closed Postoperative Diagnosis: same Procedure: open reduction internal fixation right distal radius, intra-articular Anesthesia: gen Surgeon: Devonte Meza Manager Philosophy(s): staff Resident Surgeon: none Operation and Findings: Patient was seen and evaluated preoperatively and found to have a right intra- articular-articular displaced distal radius fracture. Informed consent was obtained after detailed discussion of risk and benefits including bleeding, infection, injury to arteries, nerves, and blood vessels, weakness and numbness of hand, and tendon rupture. Informed consent was obtained. Patient received IV antibiotics prior to incision. Timeout procedure was performed. Operative extremity was prepped with alcohol followed by Hibiclens and draped usual sterile fashion. A standard volar approach to the distal radius was utilized. A 3 inch incision was made over the FCR tendon. Tendon sheath was opened. Pronator quadratus was elevated up. The fracture site was now visualized. The fracture did intra- articular extension. Traction was applied. The articular surface was reduced. Fracture fragments were manipulated to achieve excellent reduction. K wires were used to hold provisional fixation. Fluoroscopy confirmed appropriate alignment of fracture. A Synthes 2 column variable angle distal radius plate was selected. Plate was provisionally fixed to bone with K wires. 2.7 cortical screws were used to compress plate to bone. Fluoroscopy confirmed appropriate alignment of fracture with well-placed hardware. Multiple 2.7 locking screws were now placed distally. Screws were predrilled and measured for appropriate length. Additional screws were placed into the shaft. K wires were removed. Final fluoroscopy revealed excellent of fracture with well-placed hardware. The wound was thoroughly irrigated with sterile saline. Subcutaneous tissue was closed with 3-0 Vicryl and skin was closed with 3-0 nylon. Sterile dressings were applied with Xeroform, 4 x 4, soft roll, and a well padded volar splint. Patient was awakened and transferred to recovery room in stable condition IMPLANTS USED Synthes 2 column variable angle distal radius plate. POSTP-OP PLAN OF ACTIV Antibiotics: vancomycin Antiocoagulation: SCD Weight bearing status: NWB Dressing: none Dispo: expected discharge home when pain is controlled eDvonte Meza Jr., MD May 05, 2017 18:58
[2017-05-05] MEDS ORDERED: DOCUSATE SODIUM 100 MG CAP PO SCH (21:00)
[2017-05-05] MEDS ORDERED: VANCOMYCIN INJ 1,000 MG in SODIUM CHLOR 0.9% 250 ML INJ 250 ML IV SCH (23:00)
== END 2017-05-05 18:14 | disposition home or self-care (01) | DRG 511 ==
LOC: NEPC 18:30 → NEDA 21:15 → N06A 22:12
PROVIDERS: ADMIT Internal Medicine; ATTEND Internal Medicine
PROC: 0PSH04Z Reposition Right Radius with Internal Fixation Device, Open Approach (ICD-10-PCS; principal; 2017-05-05 10:30)
DX: S52.571A Other intraarticular fracture of lower end of right radius, initial encounter for closed fracture (principal); N39.0 Urinary tract infection, site not specified; I10 Essential (primary) hypertension; E83.51 Hypocalcemia; E78.00 Pure hypercholesterolemia, unspecified; F41.9 Anxiety disorder, unspecified; W18.30XA Fall on same level, unspecified, initial encounter; Y93.01 Activity, walking, marching and hiking; Z87.891 Personal history of nicotine dependence; Z88.0 Allergy status to penicillin; Z88.7 Allergy status to serum and vaccine; Z91.038 Other insect allergy status; E86.0 Dehydration; F43.9 Reaction to severe stress, unspecified
CPT/HCPCS: 71010; 73100; 73110; 76000; 80048; 80053; 81001; 85025; 85610; 85730; 87086; 93005; 96361; 96374; 96375; C1713; J0131; J0744; J1580; J1885; J2250; J2270; J2370; J2405; J3010; J3370; J7030; J7050